=== PATIENT | male | born 1995 | race Caucasian/White ===

== ENCOUNTER 2017-06-04 10:47 | Emergency (ER) | payer BC ==
[~2017-06-04] VITALS: Ht 185.4 cm; Wt 81.6 kg
[2017-06-04 10:54] VITALS: BP_SYST 139
[2017-06-04] MEDS: IBUPROFEN 800 MG TABLET PO ONE (11:35)
[2017-06-04 11:39] VITALS: BP_SYST 124
== END 2017-06-04 11:39 | disposition home or self-care (01) ==
LOC: SED 10:47
DX: M77.9 Enthesopathy, unspecified (principal); R03.0 Elevated blood-pressure reading, without diagnosis of hypertension
CPT/HCPCS: 99284